=== PATIENT | male | born 1985 | race Caucasian/White ===

== ENCOUNTER 2017-02-27 17:18 | Emergency (ER) | payer MEDICAID, OTHER ==
[~2017-02-27] VITALS: Ht 167.6 cm; Wt 82.0 kg
[~2017-02-27 17:18] MED LIST: ACET500C5 PO; CEPH-443 PO; IBUP-1542 PO; IBUP400T22 PO
[2017-02-27 17:26] VITALS: Ht 167.6 cm; Wt 82.0 kg
[2017-02-27] MEDS ORDERED: CLOT30CR24 TOP (18:00)
[2017-02-27] MEDS ORDERED: DOXY100T20 PO (18:00)
--- NOTE | 2017-02-27 22:14 | ERD ---
ER Documentation Chief Complaint Date/Time DATE: 02/27/17 TIME: 22:11 Chief Complaint Complains of left foot pain HPI This patient is a 31-year-old male presenting to the emergency department with complaints of left foot pain localized to the fourth and fifth toes ongoing intimately for the past month. Symptoms have been worsening over the past couple of days. Pain is alleviated with EtOH. He reports he does have a history of athlete's foot but now there is a larger ulceration forming in between the fourth and fifth toes. He denies fevers, chills, trauma, nausea, vomiting, diarrhea, or other symptoms currently. ROS All systems reviewed and are negative except as per history of present illness. Medications Home Meds Active Scripts Doxycycline Hyclate* (Doxycycline Hyclate*) 100 Mg Tablet.dr, 100 MG PO BID for 10 Days, #20 TAB Prov:BARTOLOME VO PA-C 02/27/17 Clotrimazole* (Clotrimazole* AF) 1% - 30 Gm Cream.gm., 1 APPLIC TOP BID for 7 Days, #1 TUB Prov:BARTOLOME VO PA-C 02/27/17 Acetaminophen* (Tylophen*) 500 Mg Capsule, 1 CAP PO Q6H Y for PAIN AND OR ELEVATED TEMP, #20 CAP Prov:CASEY HINTON NP 03/21/16 Cephalexin* (Keflex*) 500 Mg Capsule, 500 MG PO QID for 5 Days, CAP Prov:CASEY HINTON NP 03/21/16 Ibuprofen* (Motrin*) 600 Mg Tab, 600 MG PO Q6H Y for PAIN AND OR ELEVATED TEMP, #30 Prov:VETO LORENZO PA-C 07/29/15 Ibuprofen* (Ibuprofen*) 400 Mg Tablet, 400 MG PO Q6H Y for PAIN, #30 TAB Prov:CASEY HINTON NP 03/01/15 Allergies Allergies: Coded Allergies: No Known Allergy (Unverified , 09/09/13) PMhx/Soc History of Surgery: Yes (right hand surgery) Anesthesia Reaction: No Hx Neurological Disorder: No Hx Respiratory Disorders: No Hx Cardiac Disorders: No Hx Psychiatric Problems: No Hx Miscellaneous Medical Probl: No Hx Alcohol Use: Yes (liquor and beer daily) Hx Substance Use: Yes (meth and cocaine) Hx Tobacco Use: Yes Smoking Status: Current every day smoker Physical Exam Vitals Vital Signs Date Time Temp Pulse Resp B/P Pulse Ox O2 Delivery O2 Flow Rate FiO2 02/27/17 17:26 98.7 122 20 146/81 99 Physical Exam Const: Nontoxic, well-appearing male in no acute distress. Head: Atraumatic Eyes: Normal Conjunctiva ENT: Normal External Ears, Nose and Mouth. Neck: Full range of motion..~ No meningismus. Resp: Clear to auscultation bilaterally Cardio: Regular rate and rhythm, no murmurs Abd: Soft, non tender, non distended. Normal bowel sounds Skin: There is a 1 cm x 1 cm shallow ulceration noted just proximal to the left fourth and fifth toes. There is maceration noted in between the left fourth and fifth toes. There is no signs of disseminated cellulitis. Back: No midline or flank tenderness Ext: There is a 1 cm x 1 cm shallow ulceration noted just proximal to the left fourth and fifth toes. There is maceration noted in between the left fourth and fifth toes. There is no signs of disseminated cellulitis. Neur: Awake and alert Psych: Normal Mood and Affect Procedures/MDM 31-year-old male presents to the emergency department with complaints of pain and ulcer to his left foot. On exam, the patient's pulse was elevated at 1 22 bpm. This may be secondary to the fact that the patient is an alcoholic. It may also be secondary to acute pain. History and clinical examination is consistent with tinea pedis with a secondary bacterial cellulitis of the foot. The patient is stable for outpatient management and I do not feel he requires further workup or treatment in the department. The patient will be prescribed doxycycline and clotrimazole topical. He understands the discharge plan of diagnosis. I low suspicion for sepsis or disseminated cellulitis. Close follow -up with primary care physician advised. All questions and concerns were addressed. Strict ER return precautions were discussed and the patient demonstrated good understanding. Departure Diagnosis: Primary Impression: Tinea pedis Additional Impression: Cellulitis Condition: Fair Patient Instructions: Cellulitis, Athlete'S Foot Referrals: COMM[facility]ITY CLINICS YOU HAVE RECEIVED A MEDICAL SCREENING EXAM AND THE RESULTS INDICATE THAT YOU DO NOT HAVE A CONDITION THAT REQUIRES URGENT TREATMENT IN THE EMERGENCY DEPARTMENT. FURTHER EVALUATION AND TREATMENT OF YOUR CONDITION CAN WAIT UNTIL YOU ARE SEEN IN YOUR DOCTORS OFFICE WITHIN THE NEXT 1-2 DAYS. IT IS YOUR RESPONSIBILITY TO MAKE AN APPOINTMENT FOR FOLOW-UP CARE. IF YOU HAVE A PRIMARY DOCTOR --you should call your primary doctor and schedule an appointment IF YOU DO NOT HAVE A PRIMARY DOCTOR YOU CAN CALL OUR PHYSICIAN REFERRAL HOTLINE AT IF YOU CAN NOT AFFORD TO SEE A PHYSICIAN YOU CAN CHOSE FROM THE FOLLOWING [facility] [id number] [facility] [address] [facility] [address] [facility] [address] [facility] [id number] [facility]. [facility]. [address] Additional Instructions: Follow up with your PCP within the next 1-3 days for a repeat evaluation and a possible referral to a specialist, if required. Return the the emergency department immediately if symptoms worsen or change. If you have any questions regarding medications, ask your pharmacist or us before you leave. If any adverse reactions, occur while taking your medications, discontinue the treatment and return to the emergency department immediately. If any new or worsening symptoms, uncontrolled fevers, or other unexplained symptoms occur, return to the emergency department immediately. Take your medications as directed, and complete the entire course of treatment. BARTOLOME VO PA-C Feb 27, 2017 22:14
== END 2017-02-27 18:36 | disposition home or self-care (01) ==
LOC: FTE 17:18
DX: B35.3 Tinea pedis (principal); L03.116 Cellulitis of left lower limb; F17.210 Nicotine dependence, cigarettes, uncomplicated
CPT/HCPCS: 99283